=== PATIENT | female | born 1945 | race Caucasian/White ===

== ENCOUNTER 2024-09-05 20:28 | Emergency (ER) | payer MEDICARE, MEDICAID ==
[~2024-09-05 20:28] MED LIST: Iopamidol-370 76% 500 ML MDV (1 ML CHARGE) ONE
[2024-09-05] MEDS ORDERED: Labetalol HCl 100 MG/20 ML VIAL ONE (20:35)
[2024-09-05 20:53] LABS: #Basophils 0.05 10x3/uL (0.0-0.2); %Basophils 1.1 % (0.0-1.0); %Eosinophils 4.5 % (0.0-10.0); %Lymphocytes 35.3 % (21.0-51.0); %Monocytes 9.8 % (0.0-10.0); %Neutrophils 49.1 % (42.0-75.0); Hematocrit 37.1 % (36.0-47.0); Hemoglobin 12.3 g/dL (12.0-16.0); Mean Corpuscular HGB CONC 33.2 g/dL (32.0-36.0); Mean Corpuscular Hemoglobin 30.5 pg (27.0-31.0); Mean Corpuscular Volume 92.1 fL (78.0-98.0); Mean Platelet Volume 9.5 fL (7.4-10.4); Platelet Count 228 10x3/uL (130-400); RBC Distribution Width 12.7 % (11.5-14.5); Red Blood Cell (RBC) Count 4.03 mill/uL (4.20-5.40)
[2024-09-05 21:08] LABS: Prothrombin Time 12.9 sec (12.0-14.7)
[2024-09-05 21:09] LABS: PTT 42.1 sec (22.9-36.1)
[2024-09-05 21:11] LABS: ALT (SGPT) 8 U/L (8-55); AST (SGOT) 19 U/L (5-34); Alkaline Phosphatase 42 U/L (40-110); Anion Gap 12 mmol/L (10-20); BUN (Urea Nitrogen) 12 mg/dL (9.8-20.1); Bilirubin, Total 0.2 mg/dL (0.2-1.2); Calc. Creatinine Clearance 0 mL/min (70-130); Calcium 8.2 mg/dL (7.8-10.44); Carbon Dioxide 18 mmol/L (23-31); Chloride 109 mmol/L (98-107); Estimated GFR 78; Globulin 2.8 g/dL (2.4-3.5); Glucose 102 mg/dL (83-110); Potassium 3.8 mmol/L (3.5-5.1); Protein, Total 5.8 g/dL (5.8-8.1); Sodium 135 mmol/L (136-145)
[2024-09-05 21:16] LABS: Troponin I 0.028 ng/mL (< 0.028)
[2024-09-05] MEDS ORDERED: Tenecteplase 50 MG ONE (21:30)
== END 2024-09-06 00:42 | disposition short-term general hospital (02) ==
LOC: ERS 20:28
DX: I63.9 Cerebral infarction, unspecified (principal); R29.810 Facial weakness; R53.1 Weakness; E78.5 Hyperlipidemia, unspecified; R29.715 NIHSS score 15; I10 Essential (primary) hypertension; Z55.6 Problems related to health literacy; Z79.899 Other long term (current) drug therapy
CPT/HCPCS: 36415; 36416; 70450; 70496; 70498; 71045; 80053; 84484; 85025; 85610; 85730; 93005; 94760; 96374; 96375; J3101; Q9967